=== PATIENT | male | born 1980 | race African-American/Black ===

== ENCOUNTER 2019-01-24 15:53 | Emergency (ER) | payer SELFPAY ==
[~2019-01-24] VITALS: Ht 180.3 cm; Wt 83.9 kg
[2019-01-24] MEDS ORDERED: SODIUM CHLORIDE 0.9% 1,000 ML IV ONE (16:24)
[2019-01-24] MEDS ORDERED: ONDANSETRON HCL 4 MG/2 ML VIAL IV ONE (16:30)
[2019-01-24 17:05] LABS: Basophils # (auto) 0.1 uL; Basophils % (auto) 0.7 % (0.0-2.0); Eosinophils # (auto) 0 uL; Eosinophils % (auto) 0.1 % (0.0-7.0); Hematocrit 46.6 % (41.0-53.0); Hemoglobin 15.5 g/dL (13.5-17.5); Lymphocytes # (auto) 1.4 uL; Lymphocytes % (auto) 11.2 % (10.0-50.0); Mean Corpuscular Hemoglobin 32.7 pg (28.0-32.0); Mean Corpuscular Hgb Conc. 33.4 g/dL (32.0-36.0); Mean Corpuscular Volume 98.1 fL (80.0-100.0); Monocytes # (auto) 1.2 uL; Monocytes % (auto) 9.9 % (0.0-12.0); Neutrophils # (auto) 9.4 uL; Neutrophils % (auto) 78.1 % (37.0-80.0); Nucleated Red Blood Cells % 0.1 %; Platelet Count (auto) 297 10^3/uL (140-450); Red Blood Cells 4.75 10^6/uL (4.5-5.90); Red Cell Distribution Width 13.1 % (11.8-14.3)
[2019-01-24 17:13] LABS: Urine Bacteria NONE SEEN /hpf (None Seen); Urine Blood Negative /uL (Negative); Urine Mucus FEW (None Seen); Urine WBC 3 /hpf (0 - 3)
[2019-01-24 17:16] LABS: Albumin 4.9 g/dL (3.4-5.0); Calcium 10.7 mg/dL (8.5-10.1); Potassium 3.7 mmol/L (3.5-5.1)
[2019-01-24 17:17] LABS: Amphetamine Screen, Urine NEGATIVE (NEGATIVE); Barbiturate Scree,Urine NEGATIVE (NEGATIVE); Benzodiazephine Screen, Urine NEGATIVE (NEGATIVE); Cannabinoid Screen, Urine NEGATIVE (NEGATIVE); Cocaine Screen, Urine NEGATIVE (NEGATIVE); Opiate Scree,Urine NEGATIVE (NEGATIVE); Phencyclidine Screen, Urine NEGATIVE (NEGATIVE)
[2019-01-24 17:19] LABS: BUN/Creatinine Ratio 7.5; Bilirubin, Total 0.6 mg/dL (0.2-1.0); Total Protein 9.7 g/dL (6.4-8.2)
[2019-01-24 19:22] VITALS: BP 150/88
== END 2019-01-24 19:53 | disposition home or self-care (01) ==
LOC: ER 15:57
DX: R11.2 Nausea with vomiting, unspecified (principal)
CPT/HCPCS: 36415; 74176; 80053; 80307; 81001; 85025; 96361; 96374; 99284; J2405

== ENCOUNTER 2023-08-09 22:41 | Inpatient (IN) | payer MEDICAID, OTHER ==
[~2023-08-09] VITALS: Ht 180.3 cm; Wt 72.8 kg
[2023-08-09 23:20] LABS: Basophils # (auto) 0.1 10 ^3/uL (0-0.2); Eosinophils # (auto) 0.1 10 ^3/uL (0-0.8); Hemoglobin 13.7 g/dL (13.5-17.5); Nucleated Red Blood Cells % 0.1 %
[2023-08-09 23:22] LABS: Basophils % (auto) 1.6 % (0.0-2.0); Hematocrit 41.4 % (41.0-53.0); Lymphocytes # (auto) 1.9 10 ^3/uL (0.4-5.4); Lymphocytes % (auto) 44.9 % (10.0-50.0); Mean Corpuscular Hemoglobin 34.3 pg (28.0-32.0); Mean Corpuscular Hgb Conc. 33.1 g/dL (32.0-36.0); Mean Corpuscular Volume 103.4 fL (80.0-100.0); Monocytes # (auto) 0.3 10 ^3/uL (0-1.3); Monocytes % (auto) 8.3 % (0.0-12.0); Neutrophils # (auto) 1.8 10 ^3/uL (1.6-8.6); Neutrophils % (auto) 43.2 % (37.0-80.0); Red Cell Distribution Width 13.9 % (11.8-14.3); White Blood Cell 4.1 10^3/uL (4.4-10.8)
[2023-08-09 23:40] LABS: Alanine Aminotransferase 60 U/L (7-40); Albumin 4.4 g/dL (3.2-4.8); Alkaline Phosphatase 79 U/L (46-116); Amylase 211 U/L (30-118); Anion Gap 12 (5-15); Aspartate Aminotransferase 67 U/L (13-40); Bilirubin, Total 0.3 mg/dL (0.2-1.0); Calcium 9.2 mg/dL (8.7-10.4); Carbon Dioxide 23 mmol/L (20-30); Chloride 108 mmol/L (98-107); Glucose 86 mg/dL (74-106); Lipase 100 U/L (12-53); Potassium 3.6 mmol/L (3.5-5.1); Sodium 143 mmol/L (136-145); Total Protein 7.5 g/dL (5.7-8.2)
[2023-08-09 23:45] LABS: BUN/Creatinine Ratio 6.7 (10.0-20.0); Blood Urea Nitrogen < 5 mg/dL (9-23)
[2023-08-10] LABS: INR 1.03 (0.9-1.15); Partial Thromboplastin Time 29.2 SEC (24.5-34.5); Prothrombin Time 10.8 sec (9.3-11.8)
[2023-08-10] MEDS ORDERED: LACTATED RINGER'S 2,000 ML IV ONE (02:15)
[2023-08-10] MEDS ORDERED: ONDANSETRON HCL 4 MG/2 ML VIAL IV ONE ×2 (02:15→10:30)
[2023-08-10] MEDS ORDERED: MORPHINE SULFATE 4 MG/ML SYR/VIAL IV ONE (02:15)
[2023-08-10] MEDS ORDERED: IOHEXOL 350 MG/ML 100ML IJ ONE (02:28)
[2023-08-10] MEDS ORDERED: HYDROcodone-ACET 5/325MG TAB PO PRN (07:30)
[2023-08-10] MEDS ORDERED: ACETAMINOPHEN 325 MG TAB PO PRN (07:30)
[2023-08-10] MEDS ORDERED: LACTATED RINGER'S 1,000 ML IV ONE (07:30)
[2023-08-10] MEDS ORDERED: METOCLOPRAMIDE HCL 5MG/ml INJ 2ml VIAL IV PRN (07:30)
[2023-08-10 09:47] VITALS: PULSE 52; RESP 14; O2SAT 98
[2023-08-10] MEDS ORDERED: MORPHINE SULFATE INJ 2 MG/ml SYRG IV ONE (10:30)
[2023-08-10] MEDS: FOLIC ACID 1 MG TAB PO SCH (10:53)
[2023-08-10] MEDS: ENOXAPARIN SOD 40 MG/0.4 ML SYRINGE SC SCH (10:53)
[2023-08-10] MEDS: THIAMINE HCL 100 MG TAB PO SCH (10:53)
[2023-08-10] MEDS: SODIUM CHLOR 0.9% PF (SALINE LOCK) 10ML VIAL/SYR IV SCH ×2 (14:01→22:06)
[2023-08-10 19:54] VITALS: PULSE 55; RESP 16; O2SAT 95
[2023-08-10] MEDS ORDERED: diphenhdrAMINE HCL 50 MG/1 ML VL IV ONE (23:00)
[2023-08-10] MEDS: OXYCODONE W/ ACETAMINOPHEN 5/325MG TABLET PO PRN (23:01)
[2023-08-11] MEDS: OXYCODONE W/ ACETAMINOPHEN 5/325MG TABLET PO PRN ×2 (03:53→08:06)
[2023-08-11] MEDS: SODIUM CHLOR 0.9% PF (SALINE LOCK) 10ML VIAL/SYR IV SCH ×3 (06:15→21:59)
[2023-08-11] MEDS: hydrALAZINE HCL 20 MG/ML VL IV PRN ×2 (06:48→22:00)
[2023-08-11 07:35] VITALS: PULSE 71; RESP 14; O2SAT 100
[2023-08-11 08:08] LABS: Urine Bacteria NONE SEEN /hpf (None Seen); Urine Blood Negative /uL (Negative); Urine Clarity Clear (Clear); Urine Color Yellow (Yellow); Urine Mucus FEW (None Seen); Urine Protein, UAD 1+ (Negative); Urine Specific Gravity 1.021 (1.001-1.035); Urine Urobilinogen Normal (Negative); Urine WBC <1 /hpf (0 - 3)
[2023-08-11] MEDS: FOLIC ACID 1 MG TAB PO SCH (09:47)
[2023-08-11] MEDS: THIAMINE HCL 100 MG TAB PO SCH (09:47)
[2023-08-11] MEDS: ENOXAPARIN SOD 40 MG/0.4 ML SYRINGE SC SCH (09:48)
[2023-08-11 13:01] VITALS: BP 147/78; PULSE 58; RESP 19; TEMP 98; O2SAT 98
[2023-08-11] MEDS: MORPHINE SULFATE INJ 2 MG/ml SYRG IV PRN ×2 (13:36→20:25)
[2023-08-11] MEDS: SODIUM CHLORIDE 0.9% 1,000 ML IV SCH ×2 (13:40→19:25)
[2023-08-11 18:11] VITALS: BP 147/83; PULSE 52; RESP 20; TEMP 98.1; O2SAT 99
[2023-08-11 20:00] VITALS: BP 157/77; PULSE 49
[2023-08-11] MEDS: PANTOPRAZOLE 40 MG/10 ML VIAL INJ IV SCH (21:59)
[2023-08-11 22:00] VITALS: BP_SYST 156; BP_SYST 98; BP_DIAS 55; BP_DIAS 82; PULSE 76; PULSE 99; RESP 16; RESP 18; TEMP 97.5; TEMP 97.6; O2SAT 97; O2SAT 99
[2023-08-12] MEDS: SODIUM CHLORIDE 0.9% 1,000 ML IV SCH ×2 (01:50→08:22)
[2023-08-12 05:00] VITALS: BP 136/85; PULSE 58; RESP 16; TEMP 97.6; O2SAT 99
[2023-08-12 08:00] VITALS: BP 160/68; PULSE 50; PULSE 57; RESP 16; TEMP 98.4; O2SAT 99
[2023-08-12] MEDS: ENOXAPARIN SOD 40 MG/0.4 ML SYRINGE SC SCH (08:20)
[2023-08-12] MEDS: SODIUM CHLOR 0.9% PF (SALINE LOCK) 10ML VIAL/SYR IV SCH ×2 (08:20→14:00)
[2023-08-12] MEDS: hydrALAZINE HCL 20 MG/ML VL IV PRN (08:21)
[2023-08-12] MEDS: FOLIC ACID 1 MG TAB PO SCH (08:21)
[2023-08-12] MEDS: THIAMINE HCL 100 MG TAB PO SCH (08:21)
[2023-08-12] MEDS: PANTOPRAZOLE 40 MG/10 ML VIAL INJ IV SCH (08:21)
[2023-08-12 12:00] VITALS: BP 130/91; PULSE 64; RESP 16; TEMP 97.9; O2SAT 99
[2023-08-12 13:07] VITALS: BP 130/91; TEMP 36.6
== END 2023-08-12 14:30 | disposition home or self-care (01) | DRG 282 ==
LOC: ER 22:41 → EDBD 22:41 → EDUNIT# 22:41 → TELE 08-10 07:17 → TELE-WESTW 08-11 08:51
PROVIDERS: ADMIT Internal Medicine; ATTEND Family Medicine
DX: K85.90 Acute pancreatitis without necrosis or infection, unspecified (principal); E86.0 Dehydration; F10.10 Alcohol abuse, uncomplicated; Y90.9 Presence of alcohol in blood, level not specified
CPT/HCPCS: 36415; 74177; 76705; 80053; 81001; 82150; 83690; 83735; 84484; 85025; 85610; 85730; 87081; 96361; 96374; 96375; C9113; G0378; J2405